=== PATIENT | male | born 1960 | race Two or more races ===

== ENCOUNTER 2023-08-11 09:05 | Inpatient (IN) | payer MEDICAID, OTHER ==
[~2023-08-11] VITALS: Ht 180.3 cm; Wt 143.0 kg
[2023-08-11] MEDS ORDERED: SODIUM CHLORIDE 0.9% 1,000 ML IV ONE (09:30)
[2023-08-11] MEDS ORDERED: ASPirin 325 MG TAB PO ONE (09:30)
[2023-08-11 09:36] VITALS: PULSE 64; RESP 18; O2SAT 97
[2023-08-11 09:46] LABS: Urine Bacteria NONE SEEN /hpf (None Seen); Urine Blood Negative /uL (Negative); Urine Clarity Clear (Clear); Urine Color Colorless (Yellow); Urine Protein, UAD Negative (Negative); Urine Specific Gravity 1.005 (1.001-1.035); Urine Urobilinogen Normal (Negative); Urine WBC <1 /hpf (0 - 3)
[2023-08-11 09:54] LABS: Basophils # (auto) 0 10 ^3/uL (0-0.2); Basophils % (auto) 0.6 % (0.0-2.0); Eosinophils # (auto) 0.1 10 ^3/uL (0-0.8); Eosinophils % (auto) 0.8 % (0.0-7.0); Hematocrit 46.4 % (41.0-53.0); Hemoglobin 16.1 g/dL (13.5-17.5); Lymphocytes # (auto) 1.2 10 ^3/uL (0.4-5.4); Lymphocytes % (auto) 15.4 % (10.0-50.0); Mean Corpuscular Hemoglobin 32.5 pg (28.0-32.0); Mean Corpuscular Hgb Conc. 34.8 g/dL (32.0-36.0); Mean Corpuscular Volume 93.4 fL (80.0-100.0); Monocytes # (auto) 0.4 10 ^3/uL (0-1.3); Monocytes % (auto) 5.5 % (0.0-12.0); Neutrophils # (auto) 5.8 10 ^3/uL (1.6-8.6); Neutrophils % (auto) 77.7 % (37.0-80.0); Nucleated Red Blood Cells % 0.2 %; Red Blood Cells 4.97 10^6/uL (4.5-5.90); Red Cell Distribution Width 13.3 % (11.8-14.3); White Blood Cell 7.5 10^3/uL (4.4-10.8)
[2023-08-11 10:07] LABS: INR 1.03 (0.9-1.15); Partial Thromboplastin Time 29.1 SEC (24.5-34.5); Prothrombin Time 10.8 sec (9.3-11.8)
[2023-08-11 10:10] LABS: Alanine Aminotransferase 18 U/L (7-40); Albumin 4.4 g/dL (3.2-4.8); Alkaline Phosphatase 57 U/L (46-116); Anion Gap 6 (5-15); Aspartate Aminotransferase 22 U/L (13-40); BUN/Creatinine Ratio 28.4 (10.0-20.0); Bilirubin, Total 0.7 mg/dL (0.2-1.0); Blood Urea Nitrogen 19 mg/dL (9-23); Calcium 9.4 mg/dL (8.5-10.1); Carbon Dioxide 25 mmol/L (20-30); Chloride 107 mmol/L (98-107); Glucose 103 mg/dL (74-106); Potassium 4.3 mmol/L (3.5-5.1); Sodium 138 mmol/L (136-145); Total Protein 7.1 g/dL (5.7-8.2)
[2023-08-11] MEDS ORDERED: ENOXAPARIN SOD 80 MG/0.8ML SYRINGE SC SCH ×2 (12:30→22:00)
[2023-08-11] MEDS ORDERED: ONDANSETRON HCL 4 MG/2 ML VIAL IV PRN (12:30)
[2023-08-11] MEDS ORDERED: MORPHINE SULFATE 4 MG/ML SYR/VIAL IV PRN (12:30)
[2023-08-11] MEDS ORDERED: NITROGLYCERIN 0.4 MG SL TAB SL PRN (12:30)
[2023-08-11] MEDS ORDERED: ACETAMINOPHEN 325 MG TAB PO PRN (12:30)
[2023-08-11 15:46] VITALS: BP 102/63; RESP 17; O2SAT 95
[2023-08-11] MEDS ORDERED: ASPI81CH59 PO (16:50)
[2023-08-11] MEDS ORDERED: ICOS1CAP3 PO (16:50)
[2023-08-11] MEDS ORDERED: AZIL40TA2 PO (16:54)
[2023-08-11] MEDS ORDERED: METO25TA93 PO (16:54)
[2023-08-11] MEDS ORDERED: AML5T PO (16:54)
[2023-08-11 19:35] VITALS: BP 107/64; PULSE 60; RESP 18; TEMP 98.1
[2023-08-11 20:00] VITALS: PULSE 62; RESP 18; O2SAT 96
[2023-08-11] MEDS ORDERED: LORazepam 2MG/ML-1ML VIAL IV PRN (20:15)
[2023-08-11] MEDS: ATORVASTATIN 20 MG TAB PO SCH (21:23)
[2023-08-11 22:26] VITALS: BP 107/64; PULSE 60; RESP 18; TEMP 98.1; O2SAT 96
[2023-08-11 23:29] LABS: Amphetamine Screen, Urine Neg (NEGATIVE); Barbiturate Scree,Urine Neg (NEGATIVE); Benzodiazephine Screen, Urine Neg (NEGATIVE); Cocaine Screen, Urine Neg (NEGATIVE); Opiate Scree,Urine Neg (NEGATIVE)
[2023-08-11 23:31] LABS: Phencyclidine Screen, Urine Neg (NEGATIVE)
[2023-08-11 23:33] LABS: Cannabinoid Screen, Urine Neg (NEGATIVE)
[2023-08-12] VITALS (11 sets, daily range): BP systolic 96–118; BP diastolic 57–80; PULSE 56–88; RESP 16–18; TEMP 97.4–98.2; O2SAT 94–100
[2023-08-12 06:41] LABS: Basophils # (auto) 0 10 ^3/uL (0-0.2); Basophils % (auto) 0.4 % (0.0-2.0); Eosinophils # (auto) 0.4 10 ^3/uL (0-0.8); Eosinophils % (auto) 3.9 % (0.0-7.0); Hematocrit 44.6 % (41.0-53.0); Hemoglobin 15.3 g/dL (13.5-17.5); Lymphocytes # (auto) 2.9 10 ^3/uL (0.4-5.4); Mean Corpuscular Hemoglobin 32.8 pg (28.0-32.0); Mean Corpuscular Hgb Conc. 34.4 g/dL (32.0-36.0); Mean Corpuscular Volume 95.2 fL (80.0-100.0); Monocytes # (auto) 0.6 10 ^3/uL (0-1.3); Monocytes % (auto) 6.8 % (0.0-12.0); Neutrophils # (auto) 5.4 10 ^3/uL (1.6-8.6); Neutrophils % (auto) 57.9 % (37.0-80.0); Nucleated Red Blood Cells % 0.1 %; Red Blood Cells 4.68 10^6/uL (4.5-5.90); Red Cell Distribution Width 13.5 % (11.8-14.3); White Blood Cell 9.3 10^3/uL (4.4-10.8)
[2023-08-12 07:07] LABS: Alanine Aminotransferase 15 U/L (7-40); Alkaline Phosphatase 59 U/L (46-116); Anion Gap 4 (5-15); Calcium 9.2 mg/dL (8.7-10.4); Carbon Dioxide 30 mmol/L (20-30); Chloride 104 mmol/L (98-107); Glucose 111 mg/dL (74-106); Lipase 55 U/L (12-53); Potassium 4.3 mmol/L (3.5-5.1); Sodium 138 mmol/L (136-145)
[2023-08-12 07:08] LABS: Albumin 4.1 g/dL (3.2-4.8); Aspartate Aminotransferase 13 U/L (13-40); Bilirubin, Total 0.6 mg/dL (0.2-1.0); Total Protein 6.6 g/dL (5.7-8.2)
[2023-08-12 08:13] LABS: BUN/Creatinine Ratio 17.1 (10.0-20.0); Blood Urea Nitrogen 14 mg/dL (9-23)
[2023-08-12] MEDS: DOCUSATE SOD 100 MG CAP PO SCH (10:00)
[2023-08-12] MEDS: ASPirin 81 mg TAB PO SCH (10:32)
[2023-08-12] MEDS: LISINOPRIL 5 MG TAB PO SCH (10:33)
[2023-08-12] MEDS: THIAMINE 100mg/ml INJ (200mg/2ml VIAL) IV SCH (10:34)
[2023-08-12] MEDS: NICOTINE 21MG/24 HR TOPICAL PATCH TD SCH (14:48)
[2023-08-12] MEDS: ATORVASTATIN 20 MG TAB PO SCH (21:56)
[2023-08-13 05:15] VITALS: BP 101/69; PULSE 52; RESP 19; TEMP 97.9; O2SAT 98
[2023-08-13 08:00] VITALS: PULSE 68; RESP 18; O2SAT 96
[2023-08-13] MEDS: THIAMINE 100mg/ml INJ (200mg/2ml VIAL) IV SCH (09:00)
[2023-08-13] MEDS: ASPirin 81 mg TAB PO SCH (09:00)
[2023-08-13] MEDS: LISINOPRIL 5 MG TAB PO SCH (09:01)
[2023-08-13] MEDS: DOCUSATE SOD 100 MG CAP PO SCH (09:01)
[2023-08-13] MEDS: NICOTINE 21MG/24 HR TOPICAL PATCH TD SCH (09:02)
[2023-08-13 10:19] VITALS: BP 114/72; PULSE 73; RESP 17; TEMP 97.9; O2SAT 97
[2023-08-13 13:00] VITALS: BP 111/71; PULSE 63; RESP 17; TEMP 98; O2SAT 96
[2023-08-13] MEDS ORDERED: MECL1TAB31 PO (13:43)
[2023-08-13] MEDS ORDERED: LISI-275 PO ×2 (13:43)
[2023-08-13] MEDS ORDERED: LISI20TA56 PO (16:37)
[2023-08-13 17:00] VITALS: BP 99/64; PULSE 56; RESP 17; TEMP 97.8; O2SAT 97
[2023-08-13 17:26] VITALS: BP 114/81; PULSE 68; TEMP 36.6
== END 2023-08-13 18:20 | disposition home or self-care (01) | DRG 111 ==
LOC: ER 09:05 → EDBD 09:05 → TELE 12:23 → TELE-EAST 15:42
PROVIDERS: ADMIT Internal Medicine Geriatric Medicine; ATTEND Student in an Organized Health Care Education/Training Program
DX: H81.10 Benign paroxysmal vertigo, unspecified ear (principal); E78.5 Hyperlipidemia, unspecified; F10.939 Alcohol use, unspecified with withdrawal, unspecified; I10 Essential (primary) hypertension; F17.210 Nicotine dependence, cigarettes, uncomplicated; R55 Syncope and collapse; Y90.9 Presence of alcohol in blood, level not specified; L98.9 Disorder of the skin and subcutaneous tissue, unspecified; R00.1 Bradycardia, unspecified; Z80.1 Family history of malignant neoplasm of trachea, bronchus and lung; Z82.49 Family history of ischemic heart disease and other diseases of the circulatory system; Z91.199 Patient's noncompliance with other medical treatment and regimen due to unspecified reason
CPT/HCPCS: 36415; 70450; 70551; 71045; 80053; 80307; 80320; 81001; 82607; 83690; 83735; 84100; 84484; 85025; 85379; 85610; 85730; 93005; 93306; 93886; 95819; 96372; G0378

== ENCOUNTER 2025-06-04 09:40 | Emergency (ER) | payer MEDICAID ==
[~2025-06-04] VITALS: Ht 175.3 cm; Wt 61.1 kg
[~2025-06-04 09:40] MED LIST: AML5T PO; ASPI81CH59 PO; ICOS1CAP3 PO; LISI20TA56 PO; MECL12.586 PO; METO25TA93 PO
--- NOTE | 2025-06-04 10:06 | ED.PDOC ---
History of Present Illness HPI Comments A 65 YEAR OLD MALE PRESENTS TO THE ED WITH COMPLAINT OF HYPERTENSION. PATIENT HAS A HISTORY OF HYPERTENSION AND TAKES LISINOPRIL. PATIENT MENTIONS THAT HIS BLOOD PRESSURE WAS 205 SYSTOLIC AT HOME. 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 PATIENT DENIES FEVER, CHILLS, SHORTNESS OF BREATH, CHEST PAIN, ABDOMINAL PAIN, NAUSEA, VOMITING, HEADACHE, OR OTHER COMPLAINTS. NO OTHER SYMPTOMS OR MODIFYING FACTORS AT THIS TIME. PATIENT IS ALERT, ORIENTED X 4, AND HAS STEADY GAIT. Time Seen by MD: 09:50 Primary Care Provider: UNKNOWN Reviewed Notes: Medications, Allergies Allergies: Coded Allergies: NO KNOWN ALLERGIES (Unverified , 08/11/23) Home Meds Active Scripts Lisinopril (Lisinopril) 20 Mg Tab, 1 TAB PO DAILY, #30 TAB 5 Refills Prov:SHANNON LEHMAN MD 08/13/23 Meclizine Hcl (Meclizine Hcl) 12.5 Mg Tab, 1 TAB PO TID PRN, #30 TAB Prov:SHANNON LEHMAN MD 08/13/23 Reported Medications Metoprolol Succinate (Metoprolol Succinate Er) 25 Mg Tab, 1 TAB PO DAILY for HIGH BP, #30 TAB 5 Refills 08/11/23 Amlodipine Besylate (NORVASC TABLET) 5 Mg Tb, 1 TAB PO DAILY for HIGH BP, #30 TAB 5 Refills 08/11/23 Aspirin (Aspirin Low Dose) 81 Mg Chw, 81 MG PO for BLOOD THINNER, TAB.CHEW 08/11/23 Icosapent Ethyl (Icosapent Ethyl) 1 Gm Cap, 1 GM PO for HIGH CHOLESTEROL, CAP 08/11/23 Information Source: Patient Mode of Arrival: Ambulatory Severity: Moderate Timing: Days Duration: Intermittent, Days Past Medical History PAST MEDICAL HISTORY: HTN Surgical History: Denies all surgeries Family History Family History: Unknown Social History Smoker: Cigarettes Alcohol: Denies ETOH Use Drugs: Denies Drug Use Lives In: Home Constitutional: reports: others (ANXIOUS ); denies: chills, diaphoresis, fatigue, fever, malaise, sweats, weakness EENTM: denies: blurred vision, double vision, ear bleeding, ear discharge, ear drainage, ear pain, ear ringing, eye pain, eye redness, hearing loss, mouth pain, mouth swelling, nasal discharge, nose bleeding, nose congestion, nose pain, photophobia, tearing, throat pain, throat swelling, voice changes, others Respiratory: denies: cough, hemoptysis, orthopnea, SOB at rest, shortness of breath, SOB with excertion, stridor, wheezing, others Cardiovascular: denies: chest pain, dizzy spells, diaphoresis, Dyspnea on exertion, edema, irregular heart beat, left arm pain, lightheadedness, palpitations, PND, syncope, others Gastrointestinal: denies: abdomen distended, abdominal pain, blood streaked bowels, constipated, diarrhea, dysphagia, difficulty swallowing, hematemesis, melena, nausea, poor appetite, poor fluid intake, rectal bleeding, rectal pain, vomiting, others Genitourinary: denies: burning, dysuria, flank pain, frequency, hematuria, incontinence, penile discharge, penile sore, pain, testicle pain, testicle swelling, urgency, others Neurological: reports: headache; denies: dizziness, fainting, left sided numbness, left sided weakness, numbness, paresthesia, pre-existing deficit, right sided numbness, right sided weakness, seizure, speech problems, tingling, tremors, weakness, others Musculoskeletal: denies: back pain, gout, joint pain, joint swelling, muscle pain, muscle stiffness, neck pain, others Integumetry: denies: bruises, change in color, change in hair/nails, dryness, laceration, lesions, lumps, rash, wounds, others Allergic/Immunocompromised: denies: Difficulty Healing, Frequent Infections, Hives, Itching, others Hematologic/Lymphatic: denies: anemia, blood clots, easy bleeding, easy bruising, swollen glands, others Endocrine: denies: excessive hunger, excessive sweating, excessive thirst, excessive urination, flushing, intolerance to cold, intolerance to heat, unexplained weight gain, unexplained weight loss, others Psychiatric: denies: anxiety, bipolar disorder, depression, hopeless, panic disorder, schizophrenia, sleepless, suicidal, others All Other Systems: Reviewed and Negative Physical Exam General Appearance: No Apparent Distress, Normal, Other (ANXIOUS ) HEENT: Normal ENT Inspection, Pharynx Normal, TMs Normal Neck: Full Range of Motion, Non-Tender, Normal, Normal Inspection Respiratory: Chest Non-Tender, Lungs Clear, No Accessory Muscle Use, No Respiratory Distress, Normal Breath Sounds Cardiovascular: No Edema, No JVD, No Murmur, No Gallop, Normal Peripheral Pulses, Regular Rate/Rhythm Breast Exam: Deferred Gastrointestinal: No Organomegaly, Non Tender, No Pulsatile Mass, Normal Bowel Sounds, Soft Genitalia: Deferred Pelvic: Deferred Rectal: Deferred Extremities: No calf tenderness, Normal capillary refill, Normal inspection, Normal range of motion, Non-tender, No pedal edema Musculoskeletal : Apperance: Normal Neurologic: Alert, accounts payable lead II-XII nml as Tested, No Motor Deficits, Normal Affect, Normal Mood, No Sensory Deficits Cerebellar Function: Normal Reflexes: Normal Skin: Dry, Normal Color, Warm Peripheral Pulses: 2+ carotid (R), 2+ carotid (L) Lymphatic: No Adenopathy Was a procedure done? Was a procedure done?: No Differential Dx Considerations may include: HTN, UNCONTROLLED HTN, HEADACHE, ANXIETY REACTION X-Ray, Labs, Meds, VS Vital Signs Date Time Temp Pulse Resp B/P (MAP) Pulse Ox O2 Delivery O2 Flow Rate FiO2 06/04/25 09:57 73 06/04/25 09:47 99.0 94 16 186/96 (126) 98 99.0 Lab Test 06/04/25 10:06 06/04/25 10:00 Range/Units White Blood Count 6.7 4.4-10.8 10^3/uL Red Blood Count 5.42 4.5-5.90 10^6/uL Hemoglobin 17.4 13.5-17.5 g/dL Hematocrit 49.4 41.0-53.0 % Mean Corpuscular Volume 91.0 80.0-100.0 fL Mean Corpuscular Hemoglobin 32.1 H 28.0-32.0 pg Mean Corpuscular Hemoglobin Concent 35.2 32.0-36.0 g/dL Red Cell Distribution Width 13.8 11.8-14.3 % Platelet Count 234 140-450 10^3/uL Mean Platelet Volume 7.8 6.9-10.8 fL Neutrophils (%) (Auto) 63.9 37.0-80.0 % Lymphocytes (%) (Auto) 26.9 10.0-50.0 % Monocytes (%) (Auto) 6.9 0.0-12.0 % Eosinophils (%) (Auto) 1.7 0.0-7.0 % Basophils (%) (Auto) 0.6 0.0-2.0 % Neutrophils # (Auto) 4.3 1.6-8.6 10 ^3/uL Lymphocytes # (Auto) 1.8 0.4-5.4 10 ^3/uL Monocytes # (Auto) 0.5 0-1.3 10 ^3/uL Eosinophils # (Auto) 0.1 0-0.8 10 ^3/uL Basophils # (Auto) 0 0-0.2 10 ^3/uL Nucleated Red Blood Cells 0.1 % Sodium Level 140 136-145 mmol/L Potassium Level 4.0 3.5-5.1 mmol/L Chloride Level 106 98-107 mmol/L Carbon Dioxide Level 26 20-31 mmol/L Anion Gap 8 5-15 Blood Urea Nitrogen 14 9-23 mg/dL Creatinine 0.74 0.700-1.30 mg/dL Glomerular Filtration Rate Calc 102 >90 mL/min BUN/Creatinine Ratio 18.9 10.0-20.0 Serum Glucose 102 74-106 mg/dL Calcium Level 10.4 8.7-10.4 mg/dL Troponin I High Sensitivity < 3 L </=54 ng/L Urine Color Colorless Yellow Urine Clarity Clear Clear Urine pH 8.0 5.0-9.0 Urine Specific Beals 1.005 1.001-1.035 Urine Protein Negative Negative Urine Ketones Negative Negative Urine Blood Negative Negative /uL Urine Nitrite Negative Negative Urine Bilirubin Negative Negative Urine Urobilinogen Normal Negative mg/dL Urine Leukocyte Esterase Negative Negative /uL Urine RBC <1 0 - 3 /hpf Urine Microscopic WBC < 1 0-3 /HPF Urine Squamous Epithelial Cells None seen <5 /hpf Urine Bacteria None seen None Seen /hpf Urine Glucose Normal Normal mg/dL PATIENT: CHARLES NAILSCCT: [id number]: [id number] : 1960 LOC: ER ROOM / BED: / AGE / SEX: 65 / M ADM STATUS: REG ER SERVICE 0957 ORDERING PHYSICIAN: ARLET RUBY PROCEDURE(s): HWOCT - HEAD WITHOUT CONTRAST REASON: HTN WITH HEADACHE ORDER NUMBER(s): [id number], ACCESSION NUMBER(s): [id number] EXAM: CT HEAD WITHOUT CONTRAST INDICATION: HTN WITH HEADACHE TECHNIQUE: CT of the head without intravenous contrast. Radiation Dose : 1. Head: CT Dose: CTDI volume is 56.1 mGy. Dose-length product is 900 mGy*cm The dose indicators for CT are the volume Computed Tomography (CT) Dose Index (CTDIvol) and the Dose Length Product (DLP), and are measured in units of mGy and mGy-cm, respectively. These indicators are not patient dose, but values generated from the CT scanner acquisition factors. The report includes radiation exposure data for exposures received during this examination. COMPARISON: CT HEAD WITHOUT CONTRAST on DOS: 08/11/23 FINDINGS: There is no evidence of acute intracranial hemorrhage, extra-axial collection, mass effect, midline shift, herniation or hydrocephalus. The ventricles, sulci and cisterns are age appropriate. The courtney-white differentiation is intact. Patchy periventricular and subcortical white matter hypoattenuation is nonspecific but may be related to small vessel ischemic disease. The visualized paranasal sinuses and mastoid air cells are clear. The surrounding soft tissues and osseous structures are unremarkable. IMPRESSION: 1. No acute intracranial abnormality. Radiation optimization: All CT scans at this facility use at least one of these dose optimization techniques: automated exposure control mA and/or kV adjustment per patient size (includes targeted exams where dose is matched to clinical indication) or iterative reconstruction. ATED BY: EDDA GIMENEZ MD DICTATED DATE/TIME: 06/04/25 103 SIGNED BY: EDDA GIMENEZ MD SIGNED DATE/TIME: 06/04/25 103 PATIENT: MARYSE NAILS ACCT: [id number] UNIT: [id number] : 1960 LOC: ER ROOM / BED: / AGE / SEX: 65 / M ADM STATUS: REG ER SERVICE 0957 ORDERING PHYSICIAN: ARLET RUBY PROCEDURE(s): CXR1 - CHEST XRAY 1 VIEW REASON: HTN ORDER NUMBER(s): [id number], ACCESSION NUMBER(s): [id number] EXAM: XY CHEST XRAY 1 VIEW HISTORY: HTN COMPARISON: XY CHEST PORTABLE on DOS: 08/11/23 TECHNIQUE: Portable AP view of the chest was performed. FINDINGS: No pneumothorax, consolidative infiltrates, or pulmonary edema. The heart is not enlarged. There is mild thoracic degenerative disc disease. IMPRESSION: No acute intrathoracic process. ATED BY: CHRISTOPH ALEGRE MD DICTATED DATE/TIME: 06/04/25 1028 SIGNED BY: CHRISTOPH ALEGRE MD SIGNED DATE/TIME: 06/04/25 1028 X-Ray, Labs, Meds, VS Comment EXTERNAL MEDICAL RECORDS: NONE INDEPENDENT HISTORIANS: NONE SOCIAL DETERMINANTS OF HEALTH: NONE LABS ORDERED: CBC, BMP, TROPONIN, UA REVIEWED AND INTERPRETED RESULTS: NONE IMAGING ORDERED: HEAD CT TREATMENTS ORDERED: LISINOPRIL 20MG AND AMLODIPINE 5MG PO. PATIENT'S CASE AND RESULTS HAVE BEEN DISCUSSED WITH DR. CASTILLO AND THEY AGREE WITH MY PLAN OF CARE. IN THE ER, I INSTRUCTED THE PATIENT TO TAKE AN ADDITIONAL DOSE OF HIS HTN MEDICATION LISINOPRIL 20MG AND AMLODIPINE 5MG PO. PATIENTS BLOOD PRESSURE WAS 131/75 AT THIS TIME RECHECK. I HAVE DISCUSSED IMAGING AND LAB RESULTS WITH THE PATIENT AND HAVE INSTRUCTED THE PATIENT TO FOLLOW UP WITH THEIR PCP IN 1-2 DAYS. THE PATIENT FULLY UNDERSTANDS THEIR RESULTS AND ARE AWARE THEY NEED TO FOLLOW UP WITH THEIR PCP FOR FURTHER EVALUATION IF THEIR SYMPTOMS PERSIST. Time of 1ST Reevaluation: 10:20 Reevaluation 1ST: Improved Patient Education/Counseling: Diagnosis, Treatment, Need For Follow Up Family Education/Counseling: Diagnosis, Treatment, No Family Present Medical Screening: No EMC Exist At This Time SEPSIS Sepsis Screen Physician Orders Electrocardigram (06/04/25 09:57) Chest Xray 1 View (06/04/25 09:57) Head Without Contrast (06/04/25 09:57) Vital Signs Date Time Temp Pulse Resp B/P (MAP) Pulse Ox O2 Delivery O2 Flow Rate FiO2 06/04/25 09:57 73 06/04/25 09:47 99.0 94 16 186/96 (126) 98 99.0 Laboratory Tests Test 06/04/25 10:06 White Blood Count 6.7 10^3/uL (4.4-10.8) Departure 1 Departure Time of Disposition: 11:20 Impression: Primary Impression: Uncontrolled hypertension Additional Impression: Tension headache Disposition: 01 HOME / SELF CARE / HOMELESS Condition: Stable Additional Instructions: FOLLOW-UP WITH PCP IN 1 TO 2 DAYS. TAKE MEDICATIONS PRESCRIBED. RETURN TO ED FOR ANY NEW OR WORSENING SYMPTOMS. Discharged With: Self, Relative Critical Care Note Critical Care Time?: No Stability Stability form required: No Heart Score Heart Score: Heart Score Response (Comments) Value History N/A 0 EKG N/A 0 Age N/A 0 Risk Factors N/A 0 Troponin N/A 0 Total 0 I personally scribed for ARLET RUBY ([email or web address]) on 06/04/25 at 10:06. Electronically submitted by Van Ng ([email or web address]). I personally scribed for ARLET RUBY ([email or web address]) on 06/04/25 at 10:59. Electronically submitted by Van Ng ([email or web address]). I personally scribed for ARLET RUBY ([email or web address]) on 06/04/25 at 11:00. E lectronically submitted by Van Ng ([email or web address]). ARLET RUBY Jun 04, 2025 10:06
[2025-06-04 10:11] LABS: Urine Protein, UAD Negative (Negative)
[2025-06-04 10:16] LABS: Hematocrit 49.4 % (41.0-53.0); Hemoglobin 17.4 g/dL (13.5-17.5); Mean Corpuscular Hemoglobin 32.1 pg (28.0-32.0); Mean Corpuscular Volume 91.0 fL (80.0-100.0); Nucleated Red Blood Cells % 0.1 %
[2025-06-04 10:26] LABS: Chloride 106 mmol/L (98-107); Potassium 4.0 mmol/L (3.5-5.1); Sodium 140 mmol/L (136-145)
[2025-06-04 10:27] LABS: Anion Gap 8 (5-15); Calcium 10.4 mg/dL (8.7-10.4); Carbon Dioxide 26 mmol/L (20-31)
--- NOTE | 2025-06-04 10:30 | DVH ---
EXAM: XY CHEST XRAY 1 VIEW HISTORY: HTN COMPARISON: XY CHEST PORTABLE on DOS: 08/11/23 TECHNIQUE: Portable AP view of the chest was performed. FINDINGS: No pneumothorax, consolidative infiltrates, or pulmonary edema. The heart is not enlarged. There is m ild thoracic degenerative disc disease. IMPRESSION: No acute intrathoracic process.
[2025-06-04 10:32] LABS: BUN/Creatinine Ratio 18.9 (10.0-20.0); Blood Urea Nitrogen 14 mg/dL (9-23); Glucose 102 mg/dL (74-106)
--- NOTE | 2025-06-04 10:33 | DVH ---
EXAM: CT HEAD WITHOUT CONTRAST INDICATION: HTN WITH HEADACHE TECHNIQUE: CT of the head without intravenous contrast. Radiation Dose : 1. Head: CT Dose: CTDI volume is 56.1 mGy. Dose-length product is 900 mGy*cm The dose indicators for CT are the volume Computed Tomography (CT) Dose Index (CTDIvol) and the Dose Length Product (DLP), and are measured in units of mGy and mGy-cm, respectively. These indicators are not patient dose, but values generated from the CT scanner acquisition factors. The report includes radiation exposure data for exposures received during this examination. COMPARISON: CT HEAD WITHOUT CONTRAST on DOS: 08/11/23 FINDINGS: There is no evidence of acute intracranial hemorrhage, extra-axial collection, mass effect, midline s hift, herniation or hydrocephalus. The ventricles, sulci and cisterns are age appropriate. The courtney-white differentiation is intact. Patchy periventricular and subcortical white matter hypoattenuation is nonspecific but may be related to small vessel ischemic disease. The visualized paranasal sinuses and mastoid air cells are clear. The surrounding soft tissues and osseous structures are unremarkable. IMPRESSION: 1. No acute intracranial abnormality. Radiation optimization: All CT scans at this facility use at least one of these dose optimization erika hniques: automated exposure control mA and/or kV adjustment per patient size (includes targeted exam s where dose is matched to clinical indication) or iterative reconstruction.
[2025-06-04 11:26] VITALS: BP 105/77; PULSE 57; RESP 14; TEMP 97.9; O2SAT 98
--- NOTE | 2025-06-04 18:53 | ECG ---
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
== END 2025-06-04 11:29 | disposition home or self-care (01) ==
LOC: ER 09:40
DX: I10 Essential (primary) hypertension (principal); G44.209 Tension-type headache, unspecified, not intractable; F17.210 Nicotine dependence, cigarettes, uncomplicated; Z79.899 Other long term (current) drug therapy
CPT/HCPCS: 36415; 70450; 71045; 80048; 81001; 84484; 85025; 93005

== ENCOUNTER 2025-10-03 16:23 | Emergency (ER) | payer MEDICAID, OTHER ==
[~2025-10-03] VITALS: Ht 177.8 cm; Wt 68.5 kg
[2025-10-03 16:49] LABS: Hematocrit 45.4 % (41.0-53.0); Hemoglobin 16.2 g/dL (13.5-17.5); Mean Corpuscular Hemoglobin 32.4 pg (28.0-32.0); Mean Corpuscular Volume 90.9 fL (80.0-100.0); Nucleated Red Blood Cells % 0.1 %
[2025-10-03 17:01] LABS: Potassium 3.7 mmol/L (3.5-5.1); Sodium 142 mmol/L (136-145)
[2025-10-03 17:02] LABS: Anion Gap 4 (5-15); Carbon Dioxide 25 mmol/L (20-31)
[2025-10-03 17:03] LABS: Calcium 9.3 mg/dL (8.7-10.4)
[2025-10-03 17:08] LABS: BUN/Creatinine Ratio 13.6 (10.0-20.0); Glucose 82 mg/dL (74-106)
--- NOTE | 2025-10-03 17:10 | DVH ---
EXAM: XY CHEST PORTABLE HISTORY: near syncope TECHNIQUE: 1 view of the chest COMPARISON: XY CHEST XRAY 1 VIEW on DOS: 06/04/25 FINDINGS/IMPRESSION: LUNGS: No pleural effusion, consolidation, or pneumothorax. MEDIASTINUM: Unremarkable. BONES: No acute osseous abnormality. OTHER: None.
[2025-10-03 17:13] LABS: Blood Urea Nitrogen 8 mg/dL (9-23); Chloride 113 mmol/L (98-107)
--- NOTE | 2025-10-03 17:16 | DVH ---
EXAM: CT HEAD WITHOUT CONTRAST INDICATION: near syncope TECHNIQUE: CT images of the head were obtained without administration of IV contrast. CT scans at this facility use dose modulation, iterative reconstruction, and/or weight based dosing when appropriate to reduce radiation dose to as low as reasonably achievable. COMPARISON: CT HEAD WITHOUT CONTRAST on DOS: 06/04/25 FINDINGS: PARENCHYMA: No acute hemorrhage. There is no mass effect, midline shift, or herniation. There is preservation of the courtney white differentiation. VENTRICLES: No hydrocephalus. EXTRA-AXIAL SPACES: No extra-axial fluid collections. OTHER: The bony structures are intact. Visualized portions of the paranasal sinuses and mastoid air cells are clear. IMPRESSION: 1. No CT evidence of an acute intracranial abnormality.
[2025-10-03] MEDS: SODIUM CHLORIDE 0.9% 1,000 ML IV ONE (17:41)
--- NOTE | 2025-10-03 21:10 | ED.PDOC ---
History of Present Illness HPI Comments 65-year-old male is brought in by ambulance for chief complaint of near-syncope. Patient reports having a history of multiple episodes of near-syncope, recently. Most recent episode is stated to have taken, early, today, when taking a shower after working outside in the heat all day. Now, patient reports having palpitations and feeling fatigued. Denies any chest pain or further acute symptoms. 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 Production Notes, Medications, Allergies Allergies: Coded Allergies: NO KNOWN ALLERGIES (Unverified , 08/11/23) Home Meds Active Scripts Lisinopril (Lisinopril) 20 Mg Tab, 1 TAB PO DAILY, #30 TAB 5 Refills Prov:SHANNON LEHMAN MD 08/13/23 Meclizine Hcl (Meclizine Hcl) 12.5 Mg Tab, 1 TAB PO TID PRN, #30 TAB Prov:SHANNON LEHMAN MD 08/13/23 Reported Medications Metoprolol Succinate (Metoprolol Succinate Er) 25 Mg Tab, 1 TAB PO DAILY for HIGH BP, #30 TAB 5 Refills 08/11/23 Amlodipine Besylate (NORVASC TABLET) 5 Mg Tb, 1 TAB PO DAILY for HIGH BP, #30 TAB 5 Refills 08/11/23 Aspirin (Aspirin Low Dose) 81 Mg Chw, 81 MG PO for BLOOD THINNER, TAB.CHEW 08/11/23 Icosapent Ethyl (Icosapent Ethyl) 1 Gm Cap, 1 GM PO for HIGH CHOLESTEROL, CAP 08/11/23 Information Source: Patient, Emergency Med Personnel Mode of Arrival: EMS Severity: Moderate Timing: Hours Duration: Since onset Prehospital treatment: 12 Lead EKG, Accucheck, Anesthesiology Crna Past Medical History PAST MEDICAL HISTORY: HTN Surgical History: Denies all surgeries Family History Family History: Unknown Social History Smoker: Cigarettes Alcohol: Denies ETOH Use Drugs: Denies Drug Use Lives In: Home All Other Systems: Reviewed and Negative (Comprehensive review of systems are negative unless otherwise stated in HPI) Physical Exam General Appearance: No Apparent Distress, Normal HEENT: Normal ENT Inspection, Pharynx Normal, TMs Normal Neck: Full Range of Motion, Non-Tender, Normal, Normal Inspection Respiratory: Chest Non-Tender, Lungs Clear, No Accessory Muscle Use, No R espiratory Distress, Normal Breath Sounds Cardiovascular: No Edema, No JVD, No Murmur, No Gallop, Normal Peripheral Pulses, Regular Rate/Rhythm Breast Exam: Deferred Gastrointestinal: No Organomegaly, Non Tender, No Pulsatile Mass, Normal Bowel Sounds, Soft Genitalia: Deferred Pelvic: Deferred Rectal: Deferred Extremities: No calf tenderness, Normal capillary refill, Normal inspection, Normal range of motion, Non-tender, No pedal edema Musculoskeletal : Apperance: Normal 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 Was a procedure done?: No Differential Dx Considerations may include: Arrhythmia, anxiety, dehydration, electrolyte imbalance, CVA, TIA, intracranial hemorrhage, viral syndrome, among others X-Ray, Labs, Meds, VS Vital Signs Date Time Temp Pulse Resp B/P (MAP) Pulse Ox O2 Delivery O2 Flow Rate FiO2 10/03/25 17:42 60 18 98 Room Air 10/03/25 17:42 98.2 60 18 127/79 (95) 100 98.2 10/03/25 16:54 98.7 89 19 155/89 99 98.7 Lab Test 10/03/25 19:28 10/03/25 17:33 10/03/25 16:36 Range/Units Troponin I High Sensitivity 6 5 5 </=54 ng/L White Blood Count 8.3 4.4-10.8 10^3/uL Red Blood Count 5.00 4.5-5.90 10^6/uL Hemoglobin 16.2 13.5-17.5 g/dL Hematocrit 45.4 41.0-53.0 % Mean Corpuscular Volume 90.9 80.0-100.0 fL Mean Corpuscular Hemoglobin 32.4 H 28.0-32.0 pg Mean Corpuscular Hemoglobin Concent 35.7 32.0-36.0 g/dL Red Cell Distribution Width 13.2 11.8-14.3 % Platelet Count 250 140-450 10^3/uL Mean Platelet Volume 7.5 6.9-10.8 fL Neutrophils (%) (Auto) 71.4 37.0-80.0 % Lymphocytes (%) (Auto) 21.4 10.0-50.0 % Monocytes (%) (Auto) 5.9 0.0-12.0 % Eosinophils (%) (Auto) 0.9 0.0-7.0 % Basophils (%) (Auto) 0.4 0.0-2.0 % Neutrophils # (Auto) 5.9 1.6-8.6 10 ^3/uL Lymphocytes # (Auto) 1.8 0.4-5.4 10 ^3/uL Monocytes # (Auto) 0.5 0-1.3 10 ^3/uL Eosinophils # (Auto) 0.1 0-0.8 10 ^3/uL Basophils # (Auto) 0 0-0.2 10 ^3/uL Nucleated Red Blood Cells 0.1 % Sodium Level 142 136-145 mmol/L Potassium Level 3.7 3.5-5.1 mmol/L Chloride Level 113 H 98-107 mmol/L Carbon Dioxide Level 25 20-31 mmol/L Anion Gap 4 L 5-15 Blood Urea Nitrogen 8 L 9-23 mg/dL Creatinine 0.59 L 0.700-1.30 mg/dL Glomerular Filtration Rate Calc 109 >90 mL/min BUN/Creatinine Ratio 13.6 10.0-20.0 Serum Glucose 82 74-106 mg/dL Calcium Level 9.3 8.7-10.4 mg/dL Current Medications Medications (Trade) Dose Ordered Sig/Taina Route Start Time Stop Time Status Last Admin Sodium Chloride 1,000 ml @ 1,000 mls/hr Q1H ONCE IV 10/03/25 16:30 10/03/25 17:29 DC 10/03/25 17:41 [place] [address] Ph: [phone] DIAGNOSTIC IMAGING Diagnostic Imaging Report : [id number] Signed PATIENT: MARYSE NAILS ACCT: [id number] UNIT: [id number] : 1960 LOC: ER ROOM / BED: / AGE / SEX: 65 / M ADM STATUS: REG ER SERVICE [id number] ORDERING PHYSICIAN: SHITAL CSATILLO MD PROCEDURE(s): HWOCT - HEAD WITHOUT CONTRAST REASON: near syncope ORDER NUMBER(s): [id number], ACCESSION NUMBER(s): [id number] EXAM: CT HEAD WITHOUT CONTRAST INDICATION: near syncope TECHNIQUE: CT images of the head were obtained without administration of IV contrast. CT scans at this facility use dose modulation, iterative reconstruction, and/or weight based dosing when appropriate to reduce radiation dose to as low as reasonably achievable. COMPARISON: CT HEAD WITHOUT CONTRAST on DOS: 06/04/25 FINDINGS: PARENCHYMA: No acute hemorrhage. There is no mass effect, midline shift, or herniation. There is preservation of the courtney white differentiation. VENTRICLES: No hydrocephalus. EXTRA-AXIAL SPACES: No extra-axial fluid collections. OTHER: The bony structures are intact. Visualized portions of the paranasal sinuses and mastoid air cells are clear. IMPRESSION: 1. No CT evidence of an acute intracranial abnormality. ATED BY: BROOKS PORTILLO MD DICTATED DATE/TIME: 10/03/251712 SIGNED BY: BROOKS PORTILLO MD SIGNED DATE/TIME: 10/03/251712 CC: [place] [address] Ph: [phone] DIAGNOSTIC IMAGING Diagnostic Imaging Report : [id number] Signed PATIENT: MARYSE NAILS ACCT: [id number] UNIT: [id number] : 1960 LOC: ER ROOM / BED: / AGE / SEX: 65 / M ADM STATUS: REG ER SERVICE 26 ORDERING PHYSICIAN: SHITAL CASTILLO MD PROCEDURE(s): CXRP - CHEST PORTABLE REASON: near syncope ORDER NUMBER(s): [id number], ACCESSION NUMBER(s): [id number] EXAM: XY CHEST PORTABLE HISTORY: near syncope TECHNIQUE: 1 view of the chest COMPARISON: XY CHEST XRAY 1 VIEW on DOS: 06/04/25 FINDINGS/IMPRESSION: LUNGS: No pleural effusion, consolidation, or pneumothorax. MEDIASTINUM: Unremarkable. BONES: No acute osseous abnormality. OTHER: None. ATED BY: BROOKS PORTILLO MD DICTATED DATE/TIME: 10/03/251707 SIGNED BY: BROOKS PORTILLO MD SIGNED DATE/TIME: 11/08/25 1708 CC: Time of 1ST Reevaluation: 16:50 Reevaluation 1ST: Unchanged Patient Education/Counseling: Diagnosis, Treatment, Other (Need for admission) Family Education/Counseling: No Family Present SEPSIS Sepsis Screen Date sepsis recognized/suspect: Oct 03, 2025 Time Sepsis recognized/suspect: 1656 Recent Procedure: No On Antibiotic Therapy: No Respiratory Rate >20: No Heart Rate >90: No Temp<36 C (96.8 F) or >38.3 C: No SBP <90 or MAP <65 mmHG: No New Acute Mental Status Change: No Is the patient on CPAP, BIPAP,: No Physician Orders Urinalysis (10/03/25 16:27) Chest Portable (10/03/25 16:27) Electrocardigram (10/03/25 16:27) Head Without Contrast (10/03/25 16:27) Electrocardigram (10/03/25 17:27) Electrocardigram (10/03/25 19:27) Vital Signs Date Time Temp Pulse Resp B/P (MAP) Pulse Ox O2 Delivery O2 Flow Rate FiO2 10/03/25 17:42 60 18 98 Room Air 10/03/25 17:42 98.2 60 18 127/79 (95) 100 98.2 10/03/25 16:54 98.7 89 19 155/89 99 98.7 Laboratory Tests Test 10/03/25 16:36 White Blood Count 8.3 10^3/uL (4.4-10.8) Medications Medications Dose Ordered Sig/Taina Route Start Time Stop Time Status Last Admin Dose Admin Sodium Chloride 1,000 ml @ 1,000 mls/hr Q1H ONCE IV 10/03/25 16:30 10/03/25 17:29 DC 10/03/25 17:41 Departure 1 Departure Time of Disposition: 21:25 (Patient presented with syncope today and should be admitted. Data: 1. I ordered and reviewed the result of at least 3 labs including a CBC, BMP, and troponin. 2. I independently interpreted the following tests: EKG which shows a sinus arrhythmia and a chest x-ray which shows benign chest and a CT head which shows benign brain.Risk:This patient has a high risk of morbidity due to further diagnostic testing or treatment and may suffer from an acute cardiac, neurologic, or infectious disorder. Rationale: Patient should be admitted to the hospital for further management.) Impression: Primary Impression: Near syncope Additional Impression: Generalized weakness Disposition: ADMITTED INPATIENT Admit to: Tele Condition: Serious Critical Care Note Critical Care Time?: No Stability Stability form required: No Heart Score Heart Score: Heart Score Response (Comments) Value History N/A 0 EKG N/A 0 Age N/A 0 Risk Factors N/A 0 Troponin N/A 0 Total 0 I personally scribed for SHITAL CASTILLO MD ([email or web address]) on 10/03/25 at 21:10. Electronically submitted by Mario Gorman ([email or web address]). SHITAL CASTILLO MD Oct 03, 2025 21:10
[2025-10-03 21:52] VITALS: BP 152/88; PULSE 54; RESP 20; TEMP 97.1; O2SAT 97
[2025-10-04 00:19] LABS: Urine Protein, UAD Negative (Negative)
== END 2025-10-03 23:44 | disposition left against medical advice (07) ==
LOC: EDBD 16:23 → ER 16:23
DX: R55 Syncope and collapse (principal); R53.1 Weakness; F17.210 Nicotine dependence, cigarettes, uncomplicated; I10 Essential (primary) hypertension; Z79.899 Other long term (current) drug therapy
CPT/HCPCS: 36415; 70450; 71045; 80048; 81001; 84484; 85025; 96360; 99284; J7030